=== PATIENT | female | born 1960 | race Caucasian/White ===

== ENCOUNTER → 2023-07-20 | Emergency (ER) | payer MEDICAID ==
[~2023-07-20] VITALS: Ht 170.2 cm; Wt 94.3 kg
[~2023-07-20] MED LIST: GUAI5SYR PO; IBUP-1969 PO; ZIT250 PO
[2023-07-20 14:01] VITALS: BP_SYST 124; PULSE 97; RESP 18; TEMP 98.6; O2SAT 96
[2023-07-20 16:37] LABS: INFLUENZA TYPE A Negative (NEGATIVE); INFLUENZA TYPE B NEGATIVE (NEGATIVE)
[2023-07-20 16:39] LABS: ABG O2 SAT% ESTIMATE 96.8 % (94.0-100.0); BLOOD GAS BASE EXCESS -0.4 mmol/L (-3.0-3.0); BLOOD GAS HCO3 22.7 mmol/L (21.0-27.0); BLOOD GAS PO2 83.3 mmHg (75.0-100.0)
[2023-07-20 16:42] LABS: BLOOD GAS PH 7.455 (7.350-7.450)
[2023-07-20 16:43] LABS: ALLEN'S TEST POSITIVE (P); BLOOD GAS PCO2 33.1 mmHg (35.0-45.0)
[2023-07-20] MEDS: SODIUM CL 3% FOR INHALATION 15 ML VIAL.NEB INH ONE (17:26)
[2023-07-20] MEDS: guaiFENesin/DEXTROMETHORPHAN 10 ML UDC PO ONE (18:19)
[2023-07-20] MEDS: AZITHROMYCIN 250 MG TABLET PO ONE (18:19)
== END | disposition home or self-care (01) ==
LOC: SED 13:42
DX: J06.9 Acute upper respiratory infection, unspecified (principal); R05.9 Cough, unspecified; R09.89 Other specified symptoms and signs involving the circulatory and respiratory systems; Z79.899 Other long term (current) drug therapy; Z20.822 Contact with and (suspected) exposure to COVID-19
CPT/HCPCS: 99284; 71045; 87426; 36415; 94640; 36600; 82803; 87804 ×2; J7131; Q0144